=== PATIENT | female | born 1950 | race Caucasian/White ===

== ENCOUNTER 2017-08-09 16:10 | Inpatient (IN) | payer OTHER ==
--- NOTE | 2017-08-09 16:59 | GHP ---
[f rep st] PREOP HISTORY AND PHYSICAL DATE OF ADMISSION: 08/09/2017 REASON FOR ADMISSION: Right femoral neck fracture. HISTORY OF PRESENT ILLNESS: The patient is a 67-year-old female who presented to our office today wi th acute onset right hip pain after a fall last night. She has been ambulating on crutches, came in today because of pain. X-rays were obtained in the office which showed an impacted femoral neck frac ture. She will be a direct admit to [facility] and will plan on operative fixation of h er hip later this evening. Last meal was at noon today. PRIOR MEDICAL HISTORY: Asthma, migraines, arthritis, osteopenia. PRIOR SURGICAL HISTORY: None. SOCIAL HISTORY: She is . Lives here in town. She is retired. Does not smoke. Occasional u se of alcohol. She enjoys tennis, exercise, and walking. MEDICATIONS: Synthroid. ALLERGIES: Penicillin gives her itching. REVIEW OF SYSTEMS: No shortness of breath. No chest pain. Complaining of no headaches. She did no t have loss of consciousness before or after she fell. It was a mechanical fall and had tripped over some rugs. PHYSICAL EXAMINATION: VITAL SIGNS: She is 5 feet 7 inches tall, weighs 125 pounds. Blood pressure is 157/95, heart rate is 66, respiratory rate is 14 on room air. GENERAL: Alert oriented x3. HEENT : Normocephalic, atraumatic. Extraocular muscles intact. NECK: Supple. There is no lymphadenopath y. No JVD. CHEST: Clear to auscultation. CARDIOVASCULAR: Regular rate and rhythm. ABDOMEN: Sof t, nontender, nondistended. EXTREMITIES: Right lower extremity is painful to movement. Calf is soft . 5/5 ankle dorsiflexion, plantar flexion strength. 2+ dorsalis pedis, posterior tibial pulses. X-rays: 2 views of the hip show an impacted femoral neck fracture with no displacement. ASSESSMENT: Right femoral neck fracture. PLAN: We will admit the patient directly to the hospital. She last ate at noon today. Hopefully, melvin arias for about 8 o'clock surgery with a closed reduction percutaneous pinning. Risks and benefits of the surgery were discussed. She understands these risks, wishes to proceed. /[id number]/MODL
[2017-08-09] MEDS ORDERED: LR 1,000 ML IV SCH (18:19)
[2017-08-09] MEDS ORDERED: CLINDAMYCIN 900 MG/DEXTROSE 50 ML IV ONE ×2 (18:19→21:07)
[2017-08-09] MEDS ORDERED: LR 1,000 ML IV ONE (19:04)
[2017-08-09] MEDS ORDERED: BUPIVACAINE/EPI 0.5% 30 ML SDV ONE (19:21)
--- NOTE | 2017-08-09 19:58 | PDANEPAE ---
ANE History of Present Illness 67 year old female w/ PMHx of hypothyroidism presents for hip pinning. ANE Past Medical History - Cardiovascular History Hx Hypertension: No Hx Arrhythmias: No Hx Chest Pain: No Hx Coronary Artery / Peripheral Vascular Disease: No Hx CHF / Valvular Disease: No Hx Palpitations: No - Pulmonary History Hx COPD: No Hx Asthma/Reactive Airway Disease: Yes Hx Recent Upper Respiratory Infection: No Hx Oxygen in Use at Home: No Hx Sleep Apnea: No Sleep Apnea Screening Result - Last Documented: Negative - Endocrine History Hx Diabetes: No Hypothyroid: Yes Hyperthyroid: No Obesity: no - Renal History Hx Renal Disorders: No - Neurological & Psychiatric Hx Hx Neurological and Psychiatric Disorders: No - Cancer History Hx Cancer: No - Congenital Disorder History Hx Congenital Disorders: No - GI History Hx Gastrointestinal Disorders: No - Chronic Pain History Chronic Pain: No ANE Review of Systems Review of systems is: negative Review of Systems: - Exercise capacity Exercise capacity: >=4 METS ANE Patient History - Allergies Allergies/Adverse Reactions: Penicillins Allergy (Intermediate, Verified 08/09/17 18:42) Hives - Home Medications Home medications: home medication list seen and reviewed Home Medications: Levothyroxine [Synthroid 50 mcg (*)] 50 mcg PO DAILY06 08/09/17 [Last Taken ] Multivitamins [Multivitamin (*)] 1 each PO DAILY 08/09/17 [Last Taken 08/07/17] RX: Herbals/Supplements -Info Only 1 ea PO DAILY 08/09/17 [Last Taken 08/07/17] - NPO status NPO Status: no food or drink >8 hours NPO Since - Liquids (Date): 08/09/17 NPO Since - Liquids (Time): 12:00 NPO Since - Solids (Date): 08/09/17 NPO Since - Solids (Time): 12:00 - Anes Hx Anes Hx: no prior problems - Smoking Hx Smoking Status: Former smoker Marijuana use: No - Family Anes Hx Family Anes Hx: neg - N/A ANE Labs/Vital Signs - Vital Signs Vital Signs: reviewed preoperatively; see RN documention for details Blood Pressure: 145/82 Heart Rate: 65 Respiratory Rate: 16 O2 Sat (%): 96 Height: 170.18 cm Weight: 56.699 kg ANE Physical Exam - Airway Neck exam: FROM Mallampati Score: Class 2 Mouth exam: normal dental/mouth exam - Cardiovascular Cardiovascular: regular rate and rhythym - ASA Status ASA Status: II ANE Anesthesia Plan Anesthesia Plan: general endotracheal anesthesia Total IV Anesthesia: No
[2017-08-09] MEDS ORDERED: fentaNYL 100 MCG/2 ML INJ ONE ×2 (20:07→21:21)
[2017-08-09] MEDS ORDERED: PROPOFOL 200 MG/20 ML VIAL ONE (20:07)
[2017-08-09] MEDS ORDERED: ONDANSETRON 4 MG/2 ML VIAL ONE (20:48)
[2017-08-09] MEDS ORDERED: DEXAMETHASONE 4 MG/ML VIAL ONE (20:48)
[2017-08-09] MEDS ORDERED: SUGAMMADEX SODIUM 200 MG/2 ML VIAL IVP ONE (20:48)
[2017-08-09] MEDS ORDERED: PHENYLEPHRINE HCL 100 MCG/ML SYR ONE (20:48)
[2017-08-09] MEDS ORDERED: PROMETHAZINE HCL 25 MG/ML INJ IVP PRN (20:49)
[2017-08-09] MEDS ORDERED: PHENYLEPHRINE HCL 100 MCG/ML SYR IVP PRN (20:49)
[2017-08-09] MEDS ORDERED: epHEDrine SULFATE 10 MG/ML SYR IVP PRN (20:49)
[2017-08-09] MEDS ORDERED: LR 500 ML IV PRN (20:49)
[2017-08-09] MEDS ORDERED: ONDANSETRON 4 MG/2 ML VIAL IVP PRN (20:49)
[2017-08-09] MEDS ORDERED: NALOXONE HCL 0.4 MG/ML INJ IVP PRN (20:49)
[2017-08-09] MEDS ORDERED: HYDROmorphONE/DILAUDID 1 MG/ML INJ IVP PRN (20:49)
[2017-08-09] MEDS ORDERED: HYDROCODONE/APAP 5/325 TAB PO PRN (21:04)
[2017-08-09] MEDS ORDERED: OXYCODONE/APAP 5/325 TAB PO PRN (21:04)
--- NOTE | 2017-08-09 21:09 | POSTOPPROG ---
Post Op Note Date of Operation: 08/09/17 Surgeon: Luis Nino Anesthesiologist: christy Anesthesia: GET(General Endotracheal) Pre-op Diagnosis: RT femoral neck fracture Post-op Diagnosis: same Procedure: PCP RT fem neck Inf/Abcess present in the surg proc area at time of surgery?: No EBL: Minimal Complications: none
[2017-08-09] MEDS ORDERED: D5W 1/2 NS W/ 20 KCl/L 1,000 ML IV SCH (21:15)
[2017-08-09] MEDS: fentaNYL 100 MCG/2 ML INJ IVP PRN ×2 (21:22→21:33)
[2017-08-09] MEDS ORDERED: HYDROmorphONE/DILAUDID 1 MG/ML INJ ONE (21:47)
--- NOTE | 2017-08-09 23:46 | POSTANESTH ---
Post Anesthetic Evaluation Cardiovascular Status: Normal, Stable, Similar to Pre-Op Cond Respiratory Status: Normal, Stable, Similar to Pre-op Cond. Level of Consciousness/Mental Status: Can Participate in Eval, Alert and Oriented Pain Control: Adequate, Prn Tx Ordered Nausea/Vomiting Control: Adequate, Prn Tx Ordered Complications Possibly Related to Anesthesia: None Noted
--- NOTE | 2017-08-10 00:54 | GOP ---
[f rep st] OPERATIVE REPORT DATE OF OPERATION: 08/09/2017 SURGEON: Luis Nino MD ANESTHESIA: General. PREOPERATIVE DIAGNOSIS: Femoral neck fracture, right. POSTOPERATIVE DIAGNOSIS: Femoral neck fracture, right. PROCEDURE PERFORMED: Percutaneous pinning, right femoral neck. FINDINGS: ESTIMATED BLOOD LOSS: Minimal. INDICATIONS: Patient is a 67-year-old female who fell on a crack in the sidewalk landing directly on her hip. This happened yesterday. She came into the office today. X-rays were obtained, which teo wed an impacted femoral neck fracture. She was admitted to the hospital and taken to the operating r oom for definitive fixation of her fracture. DESCRIPTION OF PROCEDURE: After appropriate informed consent was obtained, patient was taken to the operating room. A time-out was performed, patient was identified, correct site was identified. She received 900 mg clindamycin due to her penicillin allergy. Following the induction of general endotr acheal tube anesthesia, she was transferred to the fracture table. Right lower extremity was placed in a traction rivera. Left lower extremity was placed in a well-padded well-leg rivera. All bony pr ominences were well padded. We brought in fluoroscopy and with some traction and internal rotation, I was able to reduce the fracture, both on the AP and lateral planes. Right hip was prepped and drap ed in the usual sterile fashion. Using fluoroscopy, I inserted 3 guidewires in an inverted triangle fashion. When I was satisfied with their position, drilled the near cortex and placed partially thre aded cannulated screws with good bony purchase. Guidewires were removed. Wounds were irrigated. Th e skin was closed with 3-0 nylon. I instilled 20 mL of 0.5% Marcaine with epinephrine around the inc ision. Sterile occlusive dressing was applied. Patient was awakened from anesthesia, [facility] hospital bed, taken to the recovery room in satisfactory condition. There were no immediate intraoperative complications. COMPLICATIONS: None. DRAINS: None. IMPLANTS USED: Synthes 6.5 mm cannulated screws x3. /[id number]/MODL
[2017-08-10] MEDS ORDERED: LEVOTHYROXINE 50 MCG TAB PO SCH (06:00)
[2017-08-10 07:37] VITALS: BP 115/56; PULSE 67; RESP 16; TEMP 98; O2SAT 92
[2017-08-10] MEDS ORDERED: RIVAROXABAN 10 MG TAB PO SCH (09:00)
--- NOTE | 2017-08-10 10:29 | SOAPPROG ---
SOAP Progress Note Assessment/Plan: Assessment: POD#1 PCP rt hip Plan: 08/10/17 10:27 DC home if clears PT Xarelto x 21 days [place] PRN pain may remove dressing Saturday - shower Subjective: Not much pain Objective: dressing c/d/i calf soft 5/5 df/pf leg lengths equal Vital Signs Temp Pulse Resp BP Pulse Ox 36.6 C 67 16 115/56 L 92 08/10/17 07:36 08/10/17 07:36 08/10/17 07:36 08/10/17 07:36 08/10/17 07:36 Laboratory Results 08/10/17 04:40 08/10/17 04:40 08/09/17 08/10/17 08/11/17 05:59 05:59 05:59 Intake Total 1520 Output Total 1000 300 Balance 520 -300 ICD10 Worksheet Patient Problems: Problems Problem Status Onset Femoral neck fracture Acute - ICD10 Problem Qualifiers (1) Femoral neck fracture Qualifiers: Encounter type: initial encounter Fracture type: closed Laterality: right Qualified Code(s): S72.001A - Fracture of unspecified part of neck of right femur, initial encounter for closed fracture
[2017-08-10] MEDS ORDERED: ACETAMINOPHEN 500 MG TAB PO PRN (10:30)
[2017-08-10] MEDS ORDERED: traMADol 50 MG TAB PO PRN (10:31)
--- NOTE | 2017-08-14 20:37 | GDS ---
[f rep st] DISCHARGE SUMMARY REASON FOR ADMISSION: Right femoral neck fracture. PROCEDURE PERFORMED: Percutaneous pinning, right femoral neck, August 09, 2017. HISTORY OF PRESENT ILLNESS: Theresa is a 67-year-old female, who presented to our orthopedic office with hip pain of 1 day's duration. X-rays were obtained which showed a femoral neck fracture. She w as admitted directly to the hospital, taken to the OR for definitive fixation of her fracture. HOSPITAL COURSE: Patient underwent percutaneous pinning of her right femoral neck on the evening of July. She responded well to surgery, was mobilized toe-touch weightbearing with physical and occupational therapy on postoperative day #1. She was started on Xarelto 10 mg daily for the ne xt 21 days for DVT prophylaxis and she was discharged home later that day. She will use oxycodone fo r pain control. She will follow up with me in the office in the next 2-3 weeks. Keep the wound dry for the 1st week. CONDITION AT DISCHARGE: Stable. /[id number]/MODL
== END 2017-08-10 12:41 | disposition home or self-care (01) | DRG 482 ==
LOC: F3N 17:26
PROVIDERS: ADMIT Orthopaedic Surgery; ATTEND Orthopaedic Surgery
PROC: 0QS634Z Reposition Right Upper Femur with Internal Fixation Device, Percutaneous Approach (ICD-10-PCS; principal; 2017-08-09 20:00)
DX: S72.001A Fracture of unspecified part of neck of right femur, initial encounter for closed fracture (principal); J45.909 Unspecified asthma, uncomplicated; E03.9 Hypothyroidism, unspecified; W01.0XXA Fall on same level from slipping, tripping and stumbling without subsequent striking against object, initial encounter; Y92.019 Unspecified place in single-family (private) house as the place of occurrence of the external cause; Z88.0 Allergy status to penicillin
CPT/HCPCS: 97116-GP; 97161-GP; 97165-GO; C1713; C1769; G8978-GP-CI; G8979-GP-CI; G8980-GP-CI; G8987-GO-CI; G8988-GO-CI; G8989-GO-CI; J1100; J1170; J2370; J2405; J2704; J3010

== ENCOUNTER → 2018-05-28 | Outpatient (CLI) | payer OTHER | LOC: BMCIMAGING 08:47 | PROVIDERS: ATTEND Internal Medicine | DX: Z12.31 Encounter for screening mammogram for malignant neoplasm of breast (principal); Z13.820 Encounter for screening for osteoporosis; M81.0 Age-related osteoporosis without current pathological fracture; Z78.0 Asymptomatic menopausal state ==